=== PATIENT | male | born 1945 | race Caucasian/White ===

== ENCOUNTER → 2020-12-25 | Outpatient (CLI) | payer MEDICARE, BC ==
--- NOTE | 2020-12-26 16:51 | SLEEPCENT ---
DATE: 12/25/2020 ORDERED BY: Mary Castano Nocturnal polysomnography was performed for retitration of pressure therapy in this patient with obstructive sleep apnea syndrome. For testing, a ResMed AirFit F20 full-face mask of medium size was used. An initial bilevel pressure of 14, inspiratory over 10, expiratory was used with oxygen at 4 liters per minute via nasal cannula infused through the circuit. There was 7 hours and 3 minutes of data reviewed. There was 294 minutes of sleep identified. Sleep latency was normal at 21 minutes. REM latency was normal at 112 minutes. Sleep architecture was good with three REM cycles. There was a period of wake between 1 and 2 a. m., resulting in a reduced sleep efficiency of 71%. The electrocardiogram showed a sinus rhythm with an average heart rate of 55 beats per minute. EEG showed normal waveforms for wake and sleep. Hypopneic respiratory patterning prompted increases in pressure therapy. Best sleep was seen on a bilevel pressure, inspiratory 16 over expiratory of 12. There was some scattered limb activity, and remaining measures of sleep physiology were normal. IMPRESSION: Obstructive sleep apnea syndrome (G47.33). RECOMMENDATION: Nightly use of bilevel pressure therapy, inspiratory 16 over expiratory of 12, with 4 liters of oxygen bled through the system.
== END ==
LOC: M SLEEP 20:00
PROVIDERS: ATTEND Nurse Practitioner Adult Health
DX: G47.33 Obstructive sleep apnea (adult) (pediatric) (principal)